=== PATIENT | male | born 1945 | race Caucasian/White ===

== ENCOUNTER 2022-02-04 08:40 | Emergency (ER) | payer MEDICARE, BC ==
[2022-02-04] MEDS ORDERED: Diphtheria,Pertussis(Acell),Tetanus Vaccine 0.5 ML SDV IM ONE (09:56)
[2022-02-04] MEDS: Lidocaine 1% with EPINEPHrine 1:100,000 20 ML MDV INJECT ONE (09:56)
[2022-02-04] MEDS ORDERED: Cephalexin 500 MG Cap ONE (10:00)
== END 2022-02-04 10:16 | disposition home or self-care (01) ==
LOC: EDBD 08:40 → LB.ED 08:40
DX: S81.811A Laceration without foreign body, right lower leg, initial encounter (principal); Z88.0 Allergy status to penicillin; Z91.048 Other nonmedicinal substance allergy status; Z23 Encounter for immunization; W20.8XXA Other cause of strike by thrown, projected or falling object, initial encounter
CPT/HCPCS: 12004; 90471; 99281; 99282-25; A9270-GY